=== PATIENT | male | born 1990 | race Caucasian/White ===

== ENCOUNTER 2019-01-12 14:20 | Emergency (ER) | payer MEDICAID ==
[~2019-01-12] VITALS: Ht 170.2 cm; Wt 52.3 kg
[~2019-01-12 14:20] MED LIST: AQUACAP PO; BACL10TA8 PO; BACT800T5 PO; CALCTAB88 PO; CELL500T PO; COLA100C5 PO; CREO24CA PO; FAMO20TA PO; FERR325T3 PO; FOSA70TA PO; GABA-1171 PO; HUMU1INJ2 SC; LASI20TA3 PO; LOVE0.8I SC; MAGN400T5 PO; MORP1TAB19 PO; MORP1TAB21 PO; NOVOINJ3 SC; OXYC-403 PO; PHYT5TA PO; PRED-351 PO; PREV1CAP PO; PROG1CAP2 PO; PULM1SOL INH; REME30TA PO; SING10TA32 PO; SYMB16INH INH; URSO300C3 PO; VITA50005 PO; VORI200T PO; ZITH250T PO; ZOFR4TAB16 PO; ZYRT10CA5 PO; [UNRECOGNIZED DRUG - CODE] INH; [UNRECOGNIZED DRUG - CODE] IV; [UNRECOGNIZED DRUG - CODE] IV
[2019-01-12 15:05] LABS: BASO % 0.2 % (0.0-1.0); EOS # 0.1 10^3/uL (0.0-0.50); EOS % 0.8 % (0.0-3.0); HEMATOCRIT 41.1 % (42.0-52.0); HEMOGLOBIN 13.4 g/dl (13.5-17.5); LYMPH # 1.3 10^3/uL (1.5-6.5); LYMPH % 12.8 % (24.0-44.0); MEAN CORPUSCULAR HEMOGLOBIN 32.8 pg (27.0-33.0); MEAN CORPUSCULAR HGB CONC 32.6 g/dl (32.0-36.5); MEAN CORPUSCULAR VOLUME 100.5 fl (80.0-96.0); MONO # 0.5 10^3/uL (0.0-0.8); MONO % 4.4 % (0.0-5.0); NEUTROPHILS # 8.3 10^3/uL (1.8-7.7); NEUTROPHILS % 81.2 % (36.0-66.0); PLATELET COUNT, AUTOMATED 150 10^3/uL (150-450); RED BLOOD COUNT 4.09 10^6/uL (4.30-6.10); WHITE BLOOD COUNT 10.2 10^3/uL (4.0-10.0)
[2019-01-12 15:09] LABS: VENOUS BASE EXCESS -7.1 (-2.0-2.0); VENOUS HCO3 21.8 MEQ/L (23.0-27.0); VENOUS O2 SATURATION 74.5 % (60.0-80.0); VENOUS PARTIAL PRESSURE CO2 57.5 mmHg (38.0-50.0); VENOUS PARTIAL PRESSURE O2 45.4 mmHg (30.0-50.0); VENOUS PH 7.196 UNITS (7.330-7.430); VENOUS STANDARD HCO3 18.3 MEQ/L; VENOUS TOTAL CO2 23.5 MEQ/L (24.0-28.0)
--- NOTE | 2019-01-12 15:19 | REP ---
CT Head without contrast HISTORY: Injury COMPARISON: None There is no intraparenchymal hemorrhage, acute infarct, mass or midline shift. The ventricular system is normal in appearance. There is no extra cerebral collection. There is no fracture. T mucosal thickening is present in the ethmoid and frontal sinuses. Soft tissue density is present in the nasal passage consistent with polyps. IMPRESSION: There is no intracranial lesion. Electronically Signed by Morales Avilez MD 01/12/2019 03:10 P
[2019-01-12] MEDS ORDERED: OMEP40CA2 PO (15:20)
[2019-01-12] MEDS ORDERED: METO37.5 PO (15:20)
[2019-01-12 15:25] LABS: CALCIUM LEVEL 8.4 MG/DL (8.5-10.1); CREATININE FOR GFR 1.66 MG/DL (0.70-1.30); GLOMERULAR FILTRATION RATE 53.6 (>60)
[2019-01-12 15:33] LABS: HEMOGLOBIN A1c 8.7 %
[2019-01-12] MEDS ORDERED: DEXTROSE 50% 50 ML SYRINGE IV STA (15:33)
[2019-01-12] MEDS ORDERED: DEXTROSE 50% 50 ML SYRINGE As Ordered ONE (15:34)
[2019-01-12] MEDS ORDERED: NS 1,000 ML IV SCH (15:47)
[2019-01-12 17:55] LABS: VENOUS BASE EXCESS -4.2 (-2.0-2.0); VENOUS HCO3 22.7 MEQ/L (23.0-27.0); VENOUS O2 SATURATION 73.9 % (60.0-80.0); VENOUS PARTIAL PRESSURE CO2 48.5 mmHg (38.0-50.0); VENOUS PARTIAL PRESSURE O2 41.1 mmHg (30.0-50.0); VENOUS PH 7.288 UNITS (7.330-7.430); VENOUS STANDARD HCO3 20.5 MEQ/L; VENOUS TOTAL CO2 24.2 MEQ/L (24.0-28.0)
[2019-01-12 19:04] VITALS: BP 114/74
== END 2019-01-12 19:06 | disposition home or self-care (01) ==
LOC: M ED 14:20 → EDBD 14:20 → M ED 19:06
DX: E11.649 Type 2 diabetes mellitus with hypoglycemia without coma (principal); S09.90XA Unspecified injury of head, initial encounter; X58.XXXA Exposure to other specified factors, initial encounter; Y92.89 Other specified places as the place of occurrence of the external cause; E84.9 Cystic fibrosis, unspecified; Z79.899 Other long term (current) drug therapy; Z79.4 Long term (current) use of insulin; Z88.5 Allergy status to narcotic agent

== ENCOUNTER 2019-07-15 12:16 | Emergency (ER) | payer MEDICAID ==
[~2019-07-15] VITALS: Ht 170.2 cm; Wt 49.1 kg
[~2019-07-15 12:16] MED LIST changes: +METO37.5 PO; +OMEP40CA97 PO
[2019-07-15] MEDS ORDERED: VALG1TAB PO (12:49)
--- NOTE | 2019-07-15 14:11 | REP ---
Chest x-ray: Two views. History: Cough and shortness of breath. Comparison chest x-ray: March 29, 2015. Findings: Sternotomy wires are noted anteriorly. There are bilateral mediastinal clips visible in the middle mediastinum. There is some linear fibrosis in the right upper lobe distribution. Minimal linear fibrosis is seen in the right base. No infiltrate is seen. Heart is not enlarged. Impression: Postsurgical changes. No acute disease seen. Electronically Signed by Onesimo Peng MD 07/15/2019 05:41 P
[2019-07-15 14:12] LABS: BASO % 0.4 % (0.0-1.0); EOS # 0.2 10^3/uL (0.0-0.5); EOS % 2.2 % (0.0-3.0); HEMATOCRIT 41.1 % (42.0-52.0); HEMOGLOBIN 13.3 g/dl (13.5-17.5); LYMPH # 1.6 10^3/uL (1.5-5.0); LYMPH % 19.3 % (24.0-44.0); MEAN CORPUSCULAR HEMOGLOBIN 31.6 pg (27.0-33.0); MEAN CORPUSCULAR HGB CONC 32.4 g/dl (32.0-36.5); MEAN CORPUSCULAR VOLUME 97.6 fl (80.0-96.0); MONO # 0.4 10^3/uL (0.0-0.8); MONO % 5.5 % (0.0-5.0); NEUTROPHILS # 5.8 10^3/uL (1.5-8.5); NEUTROPHILS % 72.4 % (36.0-66.0); PLATELET COUNT, AUTOMATED 139 10^3/uL (150-450); RED BLOOD COUNT 4.21 10^6/uL (4.30-6.10)
[2019-07-15 14:37] LABS: INFLUENZA A AMPLIFICATION NEGATIVE (NEGATIVE); INFLUENZA B AMPLIFICATION NEGATIVE (NEGATIVE)
[2019-07-15 15:00] VITALS: BP 123/77
[2019-07-15 15:17] LABS: BLOOD UREA NITROGEN 19 MG/DL (7-18); CHLORIDE LEVEL 107 MEQ/L (98-107); CREATININE FOR GFR 1.55 MG/DL (0.70-1.30); GLOMERULAR FILTRATION RATE 57.5 (>60); GLUCOSE, FASTING 343 MG/DL (70-100); POTASSIUM SERUM 4.2 MEQ/L (3.5-5.1); SODIUM LEVEL 137 MEQ/L (136-145)
[2019-07-15 15:18] LABS: ALT/SGPT 28 U/L (12-78); BILIRUBIN,DIRECT < 0.1 MG/DL (0.0-0.2); BILIRUBIN,TOTAL 0.2 MG/DL (0.2-1.0); CARBON DIOXIDE LEVEL 26 MEQ/L (21-32); TOTAL PROTEIN 7.8 GM/DL (6.4-8.2)
[2019-07-15 15:19] LABS: ALBUMIN 4.3 GM/DL (3.2-5.2); LIPASE 13 U/L (73-393)
[2019-07-15] MEDS ORDERED: AMOX500C PO (15:26)
[2019-07-15] MEDS ORDERED: AMOXICILLIN 500 MG CAP PO ONE (15:30)
--- NOTE | 2019-07-16 17:53 | ECGEPIP ---
[facility] - ED Test Date: 2019-07-15 Pat Name: CAMILO SAEED Department: Room: - Gender: Male Electronic Drafter: REG : [id number] Requested By: RICARDO Harper Order Number: [id number] Reading MD: Meagan Addison Measurements Intervals [place] Rate: 73 P: 75 AR: 151 QRS: 64 QRSD: 86 T: 50 QT: 362 QTc: 400 Interpretive Statements SINUS RHYTHM POSSIBLE LEFT ATRIAL ENLARGEMENT POSSIBLE RIGHT VENTRICULAR CONDUCTION DELAY EARLY REPOLARIZATION, CLINICAL CORRELATION Electronically Signed on 07-16-2019 17:52:51 EST by Meagan Addison
== END 2019-07-15 15:46 | disposition home or self-care (01) ==
LOC: M ED 12:16
DX: H66.90 Otitis media, unspecified, unspecified ear (principal); E11.9 Type 2 diabetes mellitus without complications; F32.9 Major depressive disorder, single episode, unspecified; F41.9 Anxiety disorder, unspecified; J45.909 Unspecified asthma, uncomplicated; R94.31 Abnormal electrocardiogram [ECG] [EKG]; Z79.4 Long term (current) use of insulin; Z79.52 Long term (current) use of systemic steroids; Z88.8 Allergy status to other drugs, medicaments and biological substances; Z94.2 Lung transplant status

== ENCOUNTER 2020-08-26 13:11 | Emergency (ER) | payer MEDICAID, OTHER ==
[~2020-08-26] VITALS: Ht 167.6 cm; Wt 54.5 kg
[~2020-08-26 13:11] MED LIST changes: +AMOX500C PO; +MIRT-60 PO; +PROG1CAP11 PO; -PROG1CAP2 PO; -REME30TA PO; +VALG1TAB PO
[2020-08-26] MEDS ORDERED: NS 1,000 ML IV SCH (13:44)
[2020-08-26 14:33] LABS: VENOUS BASE EXCESS -4.5 (-2.0-2.0); VENOUS HCO3 23.1 MEQ/L (23.0-27.0); VENOUS O2 SATURATION 77.5 % (60.0-80.0); VENOUS PARTIAL PRESSURE CO2 53.2 mmHg (38.0-50.0); VENOUS PARTIAL PRESSURE O2 44.6 mmHg (30.0-50.0); VENOUS PH 7.256 UNITS (7.330-7.430); VENOUS STANDARD HCO3 20.3 MEQ/L; VENOUS TOTAL CO2 24.8 MEQ/L (24.0-28.0)
[2020-08-26 14:36] LABS: BASO % 0.2 % (0.0-1.0); EOS % 0.3 % (0.0-3.0); HEMATOCRIT 40.4 % (42.0-52.0); HEMOGLOBIN 12.7 g/dl (13.5-17.5); LYMPH % 15.2 % (24.0-44.0); MEAN CORPUSCULAR HEMOGLOBIN 31.8 pg (27.0-33.0); MEAN CORPUSCULAR HGB CONC 31.4 g/dl (32.0-36.5); MEAN CORPUSCULAR VOLUME 101.3 fl (80.0-96.0); MONO # 0.3 10^3/uL (0.0-0.8); MONO % 5.3 % (0.0-5.0); NEUTROPHILS # 4.9 10^3/uL (1.5-8.5); NEUTROPHILS % 78.7 % (36.0-66.0); PLATELET COUNT, AUTOMATED 131 10^3/uL (150-450); RED BLOOD COUNT 3.99 10^6/uL (4.30-6.10); WHITE BLOOD COUNT 6.3 10^3/uL (4.0-10.0)
[2020-08-26 15:03] LABS: ACETONE/KETONE 1.01 MG/DL (<2.81); ALBUMIN 4.5 GM/DL (3.2-5.2); BILIRUBIN,DIRECT 0.2 MG/DL (0.0-0.2); BILIRUBIN,TOTAL 0.3 MG/DL (0.2-1.0); TOTAL PROTEIN 7.5 GM/DL (6.4-8.2)
[2020-08-26 15:38] LABS: HEMOGLOBIN A1c 6.2 %
[2020-08-26 16:30] VITALS: BP 126/94
== END 2020-08-26 16:40 | disposition home or self-care (01) ==
LOC: M ED 13:11
DX: E10.649 Type 1 diabetes mellitus with hypoglycemia without coma (principal); I25.10 Atherosclerotic heart disease of native coronary artery without angina pectoris; E84.9 Cystic fibrosis, unspecified; Z79.899 Other long term (current) drug therapy; Z79.4 Long term (current) use of insulin; Z88.5 Allergy status to narcotic agent

== ENCOUNTER 2023-05-12 01:15 | Emergency (ER) | payer OTHER ==
[~2023-05-12 01:15] MED LIST changes: +ALEN70TA87 PO; -FOSA70TA PO; +MONT-5 PO; +OMEP40CA4 PO; -OMEP40CA97 PO; -OXYC-403 PO; +OXYC-673 PO; -SING10TA32 PO; -VALG1TAB PO; +VALG450T10 PO; +[UNRECOGNIZED DRUG - CODE] INH; -[UNRECOGNIZED DRUG - CODE] INH
[2023-05-12 05:15] VITALS: BP 140/85; TEMP 98.1; O2SAT 99
== END 2023-05-12 06:47 | disposition home or self-care (01) ==
LOC: M ED 01:15 → EDBD 01:15 → M ED 06:47
DX: E16.2 Hypoglycemia, unspecified (principal); F12.90 Cannabis use, unspecified, uncomplicated; Z79.4 Long term (current) use of insulin; Z79.899 Other long term (current) drug therapy; Z88.5 Allergy status to narcotic agent

== ENCOUNTER → 2023-05-15 | Outpatient (CLI) | payer OTHER ==
[~2023-05-15] MED LIST changes: +MEPH5TAB6 PO; -PHYT5TA PO
[2023-05-15 10:56] LABS: BASO % 0.4 % (0.0-1.0); EOS # 0.1 10^3/uL (0.0-0.5); EOS % 1.3 % (0.0-3.0); HEMATOCRIT 40.2 % (42.0-52.0); HEMOGLOBIN 12.8 g/dl (13.5-17.5); LYMPH # 1.5 10^3/uL (1.5-5.0); LYMPH % 34.5 % (24.0-44.0); MEAN CORPUSCULAR HEMOGLOBIN 31.6 pg (27.0-33.0); MEAN CORPUSCULAR HGB CONC 31.8 g/dl (32.0-36.5); MEAN CORPUSCULAR VOLUME 99.3 fl (80.0-96.0); MONO # 0.4 10^3/uL (0.0-0.8); MONO % 9.6 % (2.0-8.0); NEUTROPHILS # 2.4 10^3/uL (1.5-8.5); PLATELET COUNT, AUTOMATED 116 10^3/uL (150-450); RED BLOOD COUNT 4.05 10^6/uL (4.30-6.10); WHITE BLOOD COUNT 4.5 10^3/uL (4.0-10.0)
[2023-05-15 11:22] LABS: HEMOGLOBIN A1c 5.5 % (4.0-6.0)
[2023-05-15 11:24] LABS: ALBUMIN 4.5 G/DL (3.2-5.2); BILIRUBIN,TOTAL 0.3 MG/DL (0.3-1.2); CALCIUM LEVEL 8.5 MG/DL (8.5-10.1); CREATININE FOR GFR 2.35 MG/DL (0.70-1.30); GLOMERULAR FILTRATION RATE 34.6 (>60); TOTAL PROTEIN 7.1 G/DL (5.7-8.2)
== END ==
LOC: M LAB 09:42
PROVIDERS: ATTEND Internal Medicine Critical Care Medicine
DX: Z94.2 Lung transplant status (principal)

== ENCOUNTER 2025-05-15 20:15 | Emergency (ER) | payer OTHER ==
[~2025-05-15] VITALS: Ht 170.2 cm; Wt 55.6 kg
[~2025-05-15 20:15] MED LIST changes: -MIRT-60 PO; +MIRT-89 PO
[2025-05-15 21:50] LABS: BASO # 0.0 10^3/uL (0.0-0.2); BASO % 0.2 % (0.0-1.0); EOS # 0.0 10^3/uL (0.0-0.5); EOS % 0.6 % (0.0-3.0); LYMPH # 0.7 10^3/uL (1.5-5.0); LYMPH % 13.6 % (24.0-44.0); MONO # 0.2 10^3/uL (0.0-0.8); MONO % 4.6 % (2.0-8.0); NEUTROPHILS # 3.9 10^3/uL (1.5-8.5); NEUTROPHILS % 80.8 % (36.0-66.0)
[2025-05-15] MEDS: D5W/0.45% SODIUM CHLORIDE 1,000 ML IV SCH (22:09)
[2025-05-15 22:26] LABS: PLATELET COUNT, AUTOMATED 94 10^3/uL (150-450)
[2025-05-15 22:45] LABS: ALT/SGPT 28 U/L (7.0-40); AST/SGOT 50 U/L (<34); CALCIUM LEVEL 8.4 MG/DL (8.5-10.1); CARBON DIOXIDE LEVEL 24 MMOL/L (20-31); CHLORIDE LEVEL 109 MMOL/L (98-107); CREATININE FOR GFR 1.67 MG/DL (0.70-1.30); GLOMERULAR FILTRATION RATE 55.1 (>60); POTASSIUM SERUM 5.5 MMOL/L (3.5-5.1); SODIUM LEVEL 139 MMOL/L (136-145)
[2025-05-16 02:05] LABS: KETONE, URINE AUTO RFX NEGATIVE (NEGATIVE); LEUKOCYTE ESTERASE UR AUTO RFX NEGATIVE (NEGATIVE); NITRITE, URINE AUTO RFX NEGATIVE (NEGATIVE); RBC, URINE AUTO RFX 0 /HPF (0-3); SQUAM EPITHELIAL CELL UR AURFX 0 /HPF (0-6); WBC, URINE AUTO RFX 0 /HPF (0-3)
[2025-05-16 02:45] VITALS: O2SAT 98
[2025-05-16 02:55] VITALS: BP 131/90; TEMP 97
== END 2025-05-16 03:15 | disposition home or self-care (01) ==
LOC: M ED 20:15
DX: E10.649 Type 1 diabetes mellitus with hypoglycemia without coma (principal); F12.10 Cannabis abuse, uncomplicated; F10.10 Alcohol abuse, uncomplicated; Z88.5 Allergy status to narcotic agent; Z79.2 Long term (current) use of antibiotics; Z79.4 Long term (current) use of insulin; Z79.899 Other long term (current) drug therapy